=== PATIENT | born 1960 | race Caucasian/White ===

== ENCOUNTER → 2024-09-14 08:07 | Outpatient (BNVA) | payer MEDICARE, MEDICAID, SELFPAY | PROVIDERS: PCP Nurse Practitioner Family; Visit Provider Internal Medicine | DX: E21.0 Primary hyperparathyroidism (principal); E06.3 Autoimmune thyroiditis | CPT/HCPCS: 99204 ==

== ENCOUNTER 2024-10-27 08:00 | Outpatient (CLI) | payer MEDICARE, MEDICAID, SELFPAY ==
--- NOTE | 2024-10-27 08:00 | NM_ITS ---
WS: [id number] EXAMINATION: NM parathyroid [id number] ORDER DATE: 10/27/2024 8:05 AM COMPARISON: None HISTORY: E21.0 - Primary hyperparathyroidism TECHNIQUE: Parathyroid scintigraphy with 19.4 mCi of technetium 99m sestamibi administered. AP and oblique views obtained with and without chin and suprasternal notch markers. Initial and 2 hour delayed imaging acquired. FINDINGS: Normal initial relatively homogeneous bilateral thyroid lobe uptake. Normal salivary uptake. Normal thyroid washout. No retained activity to indicate parathyroid adenoma. NM/NM parathyroid [id number] IMPRESSION: 1. No evidence of parathyroid adenoma
== END 2024-10-27 08:01 | disposition home or self-care (01) ==
PROVIDERS: PCP Nurse Practitioner Family; Visit Provider Internal Medicine
DX: E21.0 Primary hyperparathyroidism (principal)
CPT/HCPCS: 78070; A9500

== ENCOUNTER → 2024-11-16 10:43 | Outpatient (BNVA) | payer MEDICARE, MEDICAID, SELFPAY | PROVIDERS: PCP Nurse Practitioner Family; Visit Provider Internal Medicine | DX: E06.3 Autoimmune thyroiditis (principal); E21.0 Primary hyperparathyroidism | CPT/HCPCS: 99214 ==